=== PATIENT | female | born 1945 | race Hispanic/Latino ===

== ENCOUNTER 2021-05-13 10:11 | Outpatient (CLI) | payer MEDICARE ==
--- NOTE | 2021-05-13 15:03 | Mammography Report ---
DIGITAL SCREENING MAMMOGRAM WITH TOMOSYNTHESIS WITH CAD, 05/13/2021 CLINICAL INFORMATION / INDICATION: Routine Screening Mammography. TECHNIQUE: Digital bilateral 2D and 3D mammography with tomosynthesis was obtained in the craniocaud al and mediolateral oblique projections. Computer-Aided Detection (CAD) analysis was used for interp retation of this study. COMPARISON: 05/10/2020, 05/09/2019, 05/07/2018 FINDINGS: Breast Density: There are scattered areas of fibroglandular density. No dominant mass, suspicious calcifications, or architectural distortion in either breast. Minimal circumscribed bilateral breast nodularity has regressed when compared to prior mammograms. Po stsurgical change is again noted in the left breast. IMPRESSION: No mammographic evidence of malignancy. Follow up recommendation: Routine yearly BI-RADS Category 2: Benign. A "normal" or negative report should not discourage follow up or biopsy of a clinically significant f inding. A written summary of these findings will be mailed to the patient. The patient will be entered into a mammography reporting system which will generate a reminder letter for the patient's next appointmen t at the appropriate interval. The [employer] recommends yearly mammograms starting at age 40 and continuing as l susi as a woman is in good health. Breast MRI is recommended for women with an approximate 20-25% or greater lifetime risk of breast cancer, including women with a strong family history of breast or ova valorie cancer or who have been treated for Hodgkin's disease. Signer Name: Anika Dunham MD Signed: 05/13/2021 2:59 PM Workstation Name: [id number]
== END 2021-05-13 10:12 | disposition home or self-care (01) ==
LOC: SPVWC 10:11
PROVIDERS: ATTEND Surgery
DX: Z12.31 Encounter for screening mammogram for malignant neoplasm of breast (principal)
CPT/HCPCS: 77063; 77067